=== PATIENT | female | born 1935 | race Caucasian/White ===

== ENCOUNTER 2020-07-05 16:26 | Inpatient (IN) | payer OTHER ==
[~2020-07-05] VITALS: Ht 172.7 cm; Wt 81.6 kg
[2020-07-05 17:56] LABS: HEMOGLOBIN 12.8 gm/dl (12.3-15.3); RED BLOOD COUNT 4.52 M/UL (4.00-5.10); WHITE BLOOD COUNT 5.7 K/UL (4.5-11.0)
[2020-07-05 18:28] LABS: BUN/CREATININE RATIO 13 (0-10)
[2020-07-06 04:40] LABS: RED BLOOD COUNT 4.25 M/UL (4.00-5.10); WHITE BLOOD COUNT 5.7 K/UL (4.5-11.0)
[2020-07-06 04:55] LABS: BUN/CREATININE RATIO 14 (0-10)
[2020-07-06] MEDS ORDERED: DOXYCYCLINE HY100 MG PO (10:41)
[2020-07-06] MEDS ORDERED: SYNTHROID100 MCG PO (10:41)
[2020-07-08 02:55] LABS: HEMOGLOBIN 11.7 gm/dl (12.3-15.3); RED BLOOD COUNT 4.25 M/UL (4.00-5.10); WHITE BLOOD COUNT 5.9 K/UL (4.5-11.0)
[2020-07-08 03:15] LABS: BUN/CREATININE RATIO 33 (0-10)
[2020-07-08] MEDS ORDERED: MEDROL4 MG PO (15:30)
[2020-07-08] MEDS ORDERED: OMNICEF 300 MG300 MG PO (15:43)
== END 2020-07-08 17:53 | disposition home or self-care (01) | DRG 177 ==
LOC: ER1 16:26 → M/S 18:59 → CDU 18:59 → M/S 07-06 04:44
PROVIDERS: Emergency Medicine; Family Medicine; ADMIT Internal Medicine
PROC: 8E0ZXY6 Isolation (ICD-10-PCS; 2020-07-05)
PROC: XW13325 Transfusion of Convalescent Plasma (Nonautologous) into Peripheral Vein, Percutaneous Approach, New Technology Group 5 (ICD-10-PCS; principal; 2020-07-06)
PROC: 3E0333Z Introduction of Anti-inflammatory into Peripheral Vein, Percutaneous Approach (ICD-10-PCS; 2020-07-06)
PROC: XW033E5 Introduction of Remdesivir Anti-infective into Peripheral Vein, Percutaneous Approach, New Technology Group 5 (ICD-10-PCS; 2020-07-06)
DX: U07.1 COVID-19 (principal); J12.82 Pneumonia due to coronavirus disease 2019; J96.01 Acute respiratory failure with hypoxia; E03.9 Hypothyroidism, unspecified; Z98.890 Other specified postprocedural states; Z98.49 Cataract extraction status, unspecified eye
CPT/HCPCS: 36415; 36600; 71045; 71046; 80048; 80053; 82550; 82553; 82728; 82803; 83874; 83880; 84484; 85025; 86140; 86900; 86901; 86927; 93005; 94760; 99285; J0696; J1100; J1650; J7030